=== PATIENT | female | born 1955 | race Caucasian/White ===

== ENCOUNTER → 2017-02-14 | Outpatient (CLI) | payer OTHER ==
--- NOTE | 2017-02-14 14:53 | RAD ---
CT abdomen and pelvis without contrast 02/14/2017 Clinical indication: Dysuria and hematuria for 10 days. Comparison: None. Technique: Multiple CT images of the abdomen and pelvis without contrast according to standard protocol. Coronal and sagittal reformations were obtained. PQRS Compliance Statement: One or more of the following individualized dose reduction techniques were utilized for this examination: 1. Automated exposure control 2. Adjustment of the mA and/or kV according to patient size 3. Use of iterative reconstruction technique Findings: Abdomen and pelvis: Heart size is normal. There is minimal linear atelectasis and/or scarring in the visualized lung bases. Evaluation of the solid abdominal pelvic viscera, lymphadenopathy and vasculature is limited in the absence of intravenous contrast. Unenhanced contours of the liver, spleen, adrenal glands and pancreas are within normal limits. There is high density sludge layering in the gallbladder. No intra or extra hepatic ductal dilatation. Both [place] kidneys are present without urolithiasis or hydroureteronephrosis. Abdominal aorta is normal in caliber with mild calcified atheromatous disease. Small and large bowel loops are normal in caliber without obstruction and. Appendix is normal in appearance. No abdominal free fluid. Mild distal colonic diverticulosis. No retroperitoneal or mesenteric lymphadenopathy. Mildly distended and unopacified urinary bladder are unremarkable. Uterus and adnexa are present but incompletely evaluated by CT. No iliac or inguinal lymphadenopathy. No pelvic free fluid. There is a small fat-containing right ankle hernia. Right convexity lumbar scoliosis and prior posterior instrumentation and interbody fusion at L2-L3 with left to L3 pedicle screws and shyla. Moderate degenerative disc disease at L5-S1 with disc space narrowing and disc osteophyte complex and bilateral L4-L5 and L5-S1 facet hypertrophy. Impression: No urolithiasis or hydroureteronephrosis.
== END | disposition home or self-care (01) ==
LOC: CT 13:08
PROVIDERS: ATTEND Family Medicine
DX: R31.1 Benign essential microscopic hematuria (principal); I70.0 Atherosclerosis of aorta; R30.0 Dysuria
CPT/HCPCS: 74176